=== PATIENT | male | born 1950 | race Caucasian/White ===

== ENCOUNTER 2019-01-06 21:16 | Emergency (ER) | payer OTHER, MEDICARE ==
--- NOTE | 2019-01-06 21:51 | EDM.PDOC ---
ED HPI GENERAL MEDICAL PROBLEM - General Stated Complaint: STOMACH PAIN, VOMITING Time Seen by Provider: 01/06/19 21:40 Source of Information: Reports: Patient, Family History Limitations: Reports: No Limitations - History of Present Illness INITIAL COMMENTS - FREE TEXT/NARRATIVE: Pt. presents to ER with complaints of abdominal pain. Pt. had a colonoscopy today at the [facility]. Pt. relates that the patient had a colonoscopy today at the [facility]. Pt. states that he has been having severe abdominal pain, nausea, and vomiting since the surgery. states that they were told to go home and return if he has worsening symptoms. She states that on his discharge paperwork it stated that a polyp was removed-they state that this was not discussed with them, and they are not sure of any complications. Pt. has vomited approx. 6 times since the surgery. He has been unable to void this afternoon/evening. He has not been experiencing any bloody stools. No chest pain or shortness of breath. He states that the discomfort is intermittent, but states that in general, the pain has been worsening. He has not been diaphoretic. Onset: Today Onset Date: 01/06/19 Location: Reports: Abdomen Associated Symptoms: Reports: Nausea/Vomiting umbilical abdomen Pain Score (Numeric/FACES): 1 - Related Data Allergies Allergy/AdvReac Type Severity Reaction Status Date / Time codeine Allergy Pain Verified 01/06/19 21:52 Home Meds: Home Meds Albuterol Sulfate [Albuterol Sulfate Hfa] 2 puff INH DAILY 01/06/19 [History] Omeprazole Magnesium [Prilosec Otc] 20 mg PO DAILY 01/06/19 [History] ED ROS GENERAL - Review of Systems Review Of Systems: See Below Constitutional: Reports: No Symptoms HEENT: Reports: No Symptoms Respiratory: Reports: No Symptoms Cardiovascular: Reports: No Symptoms Endocrine: Reports: No Symptoms GI/Abdominal: Reports: Abdominal Pain, Anorexia, Decreased Appetite, Nausea, Vomiting. Denies: Black Stool, Bloody Stool, Constipation, Diarrhea, Hematemesis, Hematochezia, Melena : Reports: Other (infrequent urination) Musculoskeletal: Reports: No Symptoms Skin: Reports: No Symptoms Neurological: Reports: No Symptoms Psychiatric: Reports: No Symptoms Hematologic/Lymphatic: Reports: No Symptoms Immunologic: Reports: No Symptoms ED EXAM, GENERAL - Physical Exam Exam: See Below Exam Limited By: No Limitations General Appearance: Alert, WD/WN, Moderate Distress Head: Atraumatic, Normocephalic Respiratory/Chest: No Respiratory Distress, Lungs Clear, Normal Breath Sounds, No Accessory Muscle Use, Chest Non-Tender Cardiovascular: Normal Peripheral Pulses, Regular Rate, Rhythm, No Edema, No Gallop, No JVD, No Murmur, No Rub Peripheral Pulses: 4+: Radial (L) GI/Abdominal: Soft, No Organomegaly, No Mass, Distended, Tender. No: Rigid, Rebound, Mass, Hepatomegaly, Splenomegaly (Male) Exam: Deferred Rectal (Males) Exam: No: Deferred Back Exam: Normal Inspection, Full Range of Motion Extremities: Normal Inspection, Normal Range of Motion, Non-Tender, No Pedal Edema, Normal Capillary Refill Neurological: Alert, Oriented, CN II-XII Intact, Normal Cognition, Normal Gait, Normal Reflexes, No Motor/Sensory Deficits Psychiatric: Normal Affect, Normal Mood Skin Exam: Warm, Dry, Intact, Normal Color, No Rash Lymphatic: No Adenopathy Course - Vital Signs Last Recorded V/S: Last Vital Signs Temp 36.1 C 01/06/19 21:20 Pulse 94 01/06/19 21:20 Resp 16 01/06/19 21:20 BP 157/82 H 01/06/19 21:20 Pulse Ox 97 01/06/19 21:20 - Orders/Labs/Meds Orders: Active Orders 24 hr Category Date Time Status Bladder Scan [RC] ASDIRECTED Care 01/06/19 22:30 Active Peripheral IV Insertion Adult [OM.PC] Routine Oth 01/06/19 21:54 Ordered Labs: Laboratory Tests 01/06/19 01/06/19 01/06/19 Range/Units 22:07 22:07 22:07 WBC 8.7 (4.0-10.0) x10^3/uL RBC 5.26 (4.5-6.0) x10^6/uL Hgb 15.7 (14.0-18.0) g/dL Hct 45.7 (40.0-52.0) % MCV 86.9 (78.0-93.0) fL MCH 29.8 (26.0-32.0) pg MCHC 34.4 (32.0-36.0) g/dL RDW Coeff of Samina 12.8 (10.0-15.0) % Plt Count 185 (130-400) x10^3/uL Neut % (Auto) 84.9 H (50.0-80.0) % Lymph % (Auto) 7.8 L (25.0-50.0) % Grayson % (Auto) 7.0 (2.0-11.0) % Eos % (Auto) 0.1 (0.0-4.0) % Baso % (Auto) 0.2 (0.2-1.2) % PT 10.1 (10.0-12.8) SEC INR 0.9 L (2.0-3.5) Sodium 141 (69-191) mmol/L Potassium 4.0 (1.5-9.9) mmol/L Chloride 102 (54-184) mmol/L Carbon Dioxide 24 (21-32) mmol/L Anion Gap 19.0 (10-20) mmol/L BUN 11 (7-18) mg/dL Creatinine 1.1 (0.70-1.30) mg/dL Est Cr Clr Drug Dosing TNP Estimated GFR (MDRD) > 60 Glucose 134 H (74-106) mg/dL Calcium 9.0 (8.5-10.1) mg/dL Corrected Calcium 9.32 (8.5-10.1) mg/dL Phosphorus 3.5 (2.6-4.7) mg/dL Magnesium 1.9 (1.8-2.4) mg/dL Total Bilirubin 0.8 (0.2-1.0) mg/dL AST 16 (15-37) U/L ALT 21 (16-63) U/L Alkaline Phosphatase 98 (46-116) U/L C-Reactive Protein 0.8 (<=0.9) mg/dL Total Protein 7.2 (6.4-8.2) g/dL Albumin 3.6 (3.4-5.0) g/dL Globulin 3.6 Albumin/Globulin Ratio 1.00 Meds: Medications Discontinued Medications Generic Name Dose Route Start Last Admin Trade Name Freq PRN Reason Stop Dose Admin Hydromorphone HCl 1 mg 01/06/19 21:54 01/06/19 22:22 Dilaudid IVPUSH 01/06/19 21:55 1 mg ONETIME ONE Administration Sodium Chloride 1,000 mls @ 1,000 mls/hr 01/06/19 21:54 01/06/19 22:15 Normal Saline IV 01/06/19 22:53 1,000 mls/hr .BOLUS ONE Administration Iopamidol 100 ml 01/06/19 21:55 01/06/19 22:55 Isovue-300 (61%) IVPUSH 01/06/19 21:56 100 ml ONETIME ONE Administration Metoclopramide HCl 10 mg 01/06/19 23:19 01/06/19 23:25 Reglan IVPUSH 01/06/19 23:20 10 mg ONETIME ONE Administration Ondansetron HCl 4 mg 01/06/19 21:54 01/06/19 22:20 Zofran IVPUSH 01/06/19 21:55 4 mg ONETIME ONE Administration Sodium Chloride 10 ml 01/06/19 21:53 Saline Flush FLUSH ASDIRECTED PRN Keep Vein Open - Radiology Interpretation Free Text/Narrative:: CT abdomen and pelvis did not show any obvious perforation, pneumoperitoneum, or obstruction. It did show a large amount of retained air within the colon consistent with colonoscopy. Departure - Departure Time of Disposition: 23:40 Disposition: Home, Self-Care 01 Clinical Impression: Postoperative abdominal pain - Discharge Information Referrals: Avel Alvarez MD [Primary Care Provider] - Forms: ED Department Discharge Additional Instructions: Post colonoscopy discomfort. There is no evidence of bowel obstruction, air or fluid outside of the colon, or other obvious findings, such as ileus or perforation. Home to rest. Drink plenty of fluids. Try to walk around the house frequently. Also, chewing gum can help with getting your bowels moving as well. - My Orders Last 24 Hours: My Active Orders 01/06/19 21:54 Peripheral IV Insertion Adult [OM.PC] Routine 01/06/19 22:30 Bladder Scan [RC] ASDIRECTED - Assessment/Plan Last 24 Hours: My Active Orders 01/06/19 21:54 Peripheral IV Insertion Adult [OM.PC] Routine 01/06/19 22:30 Bladder Scan [RC] ASDIRECTED Plan: Post colonoscopy discomfort. There is no evidence of bowel obstruction, air or fluid outside of the colon, or other obvious findings, such as ileus or perforation. Home to rest. Drink plenty of fluids. Try to walk around the house frequently. Also, chewing gum can help with getting your bowels moving as well.
[2019-01-06] MEDS ORDERED: Sodium Chloride 0.9% 10 ML Syringe FLUSH PRN (21:53)
[2019-01-06] MEDS ORDERED: HYDROmorphone 1 MG/ML Syringe IVPUSH ONE (21:54)
[2019-01-06] MEDS ORDERED: Ondansetron 4 MG/2 ML SDV IVPUSH ONE (21:54)
[2019-01-06] MEDS ORDERED: Sodium Chloride 0.9% 1,000 ML IV ONE (21:54)
[2019-01-06] MEDS ORDERED: Iopamidol 612 MG/ML 100 ML Bottle IVPUSH ONE (21:55)
[2019-01-06 22:36] LABS: CHLORIDE,CL 102 mmol/L (54-184); SODIUM,NA 141 mmol/L (69-191)
[2019-01-06] MEDS ORDERED: Metoclopramide 10 MG/2 ML SDV IVPUSH ONE (23:19)
--- NOTE | 2019-01-07 08:23 | CT ---
[id number] CT/CT Abdomen Pelvis W IV EXAM: CT Abdomen Pelvis W IV CLINICAL DATA: ABDOMINAL PAIN, COLONOSCOPY TODAY COMPARISON STUDY: None. FINDINGS: Scarring at the right lung base. Liver, spleen, gallbladder, pancreas, adrenal glands, and kidneys are unremarkable. No bowel obstruction or inflammation. Air distended colon consistent with patient's history of colonoscopy. No lymphadenopathy, free fluid, or pneumoperitoneum. Atherosclerotic calcifications of the aorta and its branches. Scattered changes of spondylosis the spine. No fracture or osseous lesion. IMPRESSION: No significant abnormality in the abdomen or pelvis. Air distended colon consistent with patient's history of colonoscopy. No evidence of perforation. Shree Kumar DO 01/07/19 0822 Thank you for allowing us to participate in the care of your patient.
== END 2019-01-06 23:40 | disposition home or self-care (01) ==
LOC: VM.ED 21:16
DX: G89.18 Other acute postprocedural pain (principal); R10.9 Unspecified abdominal pain; Z88.5 Allergy status to narcotic agent
CPT/HCPCS: 74177; 80053; 83735; 84100; 85025; 85610; 86140; 96361; 96374; 96375; 99284; J1170; J2405; J2765; J7030; Q9967; 36415; 99283-GF

== ENCOUNTER 2024-08-27 09:01 | Emergency (ER) | payer OTHER, MEDICARE ==
[2024-08-27 09:27] LABS: BASOPHILS PERCENT AUTO 0.1 % (0.2-1.2); HEMATOCRIT 43.8 % (40.0-52.0); HEMOGLOBIN 14.9 g/dL (14.0-18.0); IMMATURE GRAN ABSOLUTE AUTO 0.03 x10^3/uL (0.00-0.07); LYMPHOCYTES ABSOLUTE AUTO 1.3 x10^3/uL (1.0-4.8); LYMPHOCYTES PERCENT AUTO 11.2 % (25.0-50.0); MEAN CORPUSCULAR VOLUME 88.1 fL (78.0-93.0); MONOCYTES ABSOLUTE AUTO 1.2 x10^3/uL (0.0-0.8); MONOCYTES PERCENT AUTO 10.5 % (2.0-11.0); NEUTROPHILS ABSOLUTE AUTO 8.7 x10^3/uL (1.8-7.7); NEUTROPHILS PERCENT AUTO 77.9 % (50.0-80.0); PLATELET COUNT,PLT 150 x10^3/uL (130-400); RED BLOOD CELL COUNT 4.97 x10^6/uL (4.5-6.0); WHITE BLOOD CELL COUNT,WBC 11.2 x10^3/uL (4.0-10.0)
[2024-08-27] MEDS: Albuterol/Ipratropium 3.0-0.5 MG/3 ML Neb Soln NEB ONE (09:29)
[2024-08-27 09:56] LABS: A/G RATIO 0.92; ALBUMIN 3.3 g/dL (3.4-5.0); BILIRUBIN TOTAL 0.9 mg/dL (0.2-1.0); CALCIUM 9.2 mg/dL (8.5-10.1); EST CRCL DRUG DOSING (CG) 77.46 mL/min; PROTEIN TOTAL,TP 6.9 g/dL (6.4-8.2)
[2024-08-27] MEDS: Polymyxin B/Trimethoprim 10 ML Bottle EYEBOTH ONE (10:49)
[2024-08-27] MEDS: Sodium Chloride 0.9% 1,000 ML IV ONE (10:49)
== END 2024-08-27 11:50 | disposition home or self-care (01) ==
LOC: VM.ED 09:01
DX: J44.89 Other specified chronic obstructive pulmonary disease (principal); H10.9 Unspecified conjunctivitis; R53.1 Weakness; K21.9 Gastro-esophageal reflux disease without esophagitis; Z88.5 Allergy status to narcotic agent; Z79.899 Other long term (current) drug therapy; Z79.51 Long term (current) use of inhaled steroids
CPT/HCPCS: 71045; 80053; 83605; 83880; 85025; 94640; 96360; 99284; 99285-25; A9270-GY; J7030